=== PATIENT | male | born 1955 | race Caucasian/White ===

== ENCOUNTER → 2017-04-03 | Outpatient (CLI) | payer OTHER ==
[~2017-04-03] MED LIST: REGADENOSON INJ 0.4 MG/5 ML DISP.SYRIN IV ONE
--- NOTE | 2017-04-03 13:02 | RADIOLOGY REPORT (SQ) ---
EXAM DESCRIPTION: [facility] SPECT-CARDIOLITE COMPLETED DATE/TIME: 04/03/2017 12:41 pm REASON FOR STUDY: CHEST PAIN (R07.9) R07.9 CHEST PAIN, UNSPECIFIED COMPARISON: CT abdomen pelvis 04/13/2015 RADIONUCLIDE AND DOSE: RADIONUCLIDE REST: 14.9 mCi technetium 99m sestamibi. RADIONUCLIDE STRESS: 43.5 mCi technetium 99m sestamibi. STRESS AGENT: 0.4 mg Lexiscan. The route of agent administration: Intravenous TECHNIQUE: Following administration of the radionuclide, gated ECT images of the heart are obtained in three projections. Images obtained at rest and with stress. Left ventricular functional analysis performed. LIMITATIONS: None. FINDINGS: LEFT VENTRICULAR FUNCTION: EJECTION FRACTION: 61%. END-DIASTOLIC VOLUME: 94 mL. END-SYSTOLIC VOLUME: 36 mL. TID RATIO: 1.1. WALL MOTION: Normal thickening of the left ventricular myocardium. No focal areas of fixed thickness or thinning. PERFUSION IMAGES: Normal myocardial perfusion at stress and rest. No areas of ischemia. OTHER: No other significant finding. IMPRESSION: NORMAL CARDIAC STUDY WITH PHARMACOLOGIC STRESS. NO EVIDENCE OF ISCHEMIA OR INFARCTION. NORMAL LEFT VENTRICULAR FUNCTION. COMMENT: RISK ASSESSMENT: Low risk. LOW RISK FINDINGS: Normal or small perfusion defect rest or stress. INTERMEDIATE RISK FINDINGS: Mild/moderate resting LV dysfunction LVEF=35-49%. Stress-induced moderate perfusion defect without LV dilatation. HIGH RISK FINDINGS: Severe resting LV dysfunction LVEF<35%. Stress-induced large perfusion defect. Stress-induced moderate sized multiple perfusion defects. Large fixed perfusion defect with LV dilatation. Stress-induced moderate perfusion defect with LV dilatation. TECHNICAL DOCUMENTATION: JOB ID: [id number] [employer]- All Rights Reserved
== END ==
LOC: RAD 06:45
PROVIDERS: ATTEND Family Medicine
DX: R07.9 Chest pain, unspecified (principal)
CPT/HCPCS: 93017; 78452; A9500; J2785; Q9969

== ENCOUNTER → 2019-09-27 | Outpatient (CLI) | payer BC ==
[2019-09-27 09:51] LABS: ANION GAP 7 (5-19); BLOOD UREA NITROGEN 19 mg/dL (7-20); CALCIUM 9.7 mg/dL (8.4-10.2); CARBON DIOXIDE 33 mmol/L (22-30); CHLORIDE 98 mmol/L (98-107); GLUCOSE 116 mg/dL (75-110)
== END ==
LOC: LAB 09:14
PROVIDERS: ATTEND Orthopaedic Surgery
DX: E11.8 Type 2 diabetes mellitus with unspecified complications (principal)
CPT/HCPCS: 36415; 80048